=== PATIENT | female | born 1960 | race Caucasian/White ===

== ENCOUNTER 2016-05-22 17:04 | Inpatient (IN) ==
[2016-05-22] MEDS ORDERED: predniSONE 20 MG TABLET PO ONE (17:50)
[2016-05-22] MEDS ORDERED: Acyclovir 200 MG CAPSULE PO ONE (17:52)
[2016-05-22 18:12] LABS: Basophils # 0.2 K/mcL (0.0-0.2); Basophils % 0.9 %; Eosinophils # 0.4 K/mcL (0.0-0.6); Eosinophils % 1.7 %; Hematocrit 41.3 % (35.3-44.9); Hemoglobin 13.1 g/dL (11.5-15.4); Immature Granulocytes % 0.5 % (0-4); Immature Platelets 7.5 % (1.1-6.1); Lymphocytes # 6.3 K/mcL (0.6-4.6); Lymphocytes % 30.7 %; Mean Corpuscular HGB Conc 31.7 g/dL (31.6-35.5); Mean Platelet Volume 10.5 fL (9.4-12.4); Monocytes # 1.9 K/mcL (0.0-1.3); Monocytes % 9.3 %; Neutrophils # 11.6 K/mcL (1.6-8.9); Platelet Count 425 K/mcL (140-400); Red Blood Count 4.86 M/mcL (3.82-4.97); Red Cell Distribution Width 16.5 % (11.5-14.5); Segmented Neutrophils % 56.9 %
[2016-05-22 18:23] LABS: Calcium 9.2 mg/dL (8.6-10.8); Potassium 3.4 mEq/L (3.5-4.5)
--- NOTE | 2016-05-22 18:52 | Emergency Department Note ---
Disposition Clinical Impression: Hoffman's palsy, Acute kidney injury Urinary tract infection Qualifiers: Urinary tract infection type: site unspecified Hematuria presence: without hematuria Qualified Code(s): N39.0 - Urinary tract infection, site not specified Disposition: Admitted As Inpatient Condition: Good Referrals: NO,PCP [Primary Care Provider] - Forms: ED Satisfaction Letter Time of Disposition: 22:03 General Adult HPI - General Chief complaint: ED Neuro Symptoms/Deficit Stated complaint: Facial droop, stroke-like symptoms Time Seen by Provider: 05/22/16 17:11 Source: patient Limitations: no limitations Nursing Notes Reviewed: Yes Vital Signs Reviewed: Yes - History of Present Illness HPI Narrative: Patient presents to emergency room with 2 days worth of left-sided facial droop and itching in her left eye. Patient said this one other time approximate 4 months ago. Denied any other symptoms or complaints. No fevers or chills no nausea vomiting diarrhea denied headache vision changes chest pain or shortness of breath. Onset (ago): day(s) Location: face Radiation: non-radiation Pain Severity: mild Pain Scale: 4 Consistency: constant Improves with: nothing Worsens with: nothing Associated symptoms: Reports: denies other symptoms Treatments Prior to Arrival: none - Related Data Home Medications Medication Instructions Recorded Confirmed Docusate [Colace] 100 mg PO DAILY 05/22/16 05/22/16 Ibuprofen 200 - 400 mg PO Q4H PRN 05/22/16 05/22/16 Methadone Oral Concentrate 05/22/16 05/22/16 [Methadone] Allergies Allergy/AdvReac Type Severity Reaction Status Date / Time Penicillins Allergy See Verified 05/22/16 16:01 Comments All systems ED: reviewed and negative except as stated. Constitutional: Denies: fever, chills Cardiovascular: Denies: chest pain, palpitations Respiratory: Denies: dyspnea, wheezes, hemoptysis Genitourinary: Denies: dysuria, frequency Musculoskeletal: Denies: back pain, neck pain Integumentary: Denies: rash, lesions Allergic/Immunologic: Reports: itchy eyes Past Medical History - Past Medical History Attestation: Yes The following information was validated with the patient. Source: patient Medical history: Reports: other Surgical history: Reports: non-contributory Psychiatric history: Reports: no psych history - Social History Smoking Status: Never smoker Smokeless Tobacco Status: No Alcohol use: Reports: none Drug use: Reports: none Physical Exam - General Limitations: no limitations General appearance: alert - Head Head exam: atraumatic, normocephalic, normal inspection - Eye Eye exam: Present: normal appearance, PERRL, EOMI, conjunctival injection, other (Left-sided facial droop involving the forehead) - ENT ENT exam: normal exam, normal oropharynx, mucous membranes moist, TM's normal bilaterally - Neck Neck exam: Present: normal inspection, full ROM, trachea midline - Extremities Exam Extremities exam: Present: normal inspection, full ROM, normal capillary refill. Absent: tenderness - Back Exam Back exam: Present: normal inspection, full ROM. Absent: tenderness, CVA tenderness (R), CVA tenderness (L) - Neurological Exam Neurological exam: Present: alert, oriented X3, normal gait - Skin Skin exam: Present: warm, dry, intact, normal color Course Course Narrative: Patient seen and examined the time arrival. See history of present illness patient presents with left-sided facial weakness started 2 days ago. S she has had this in the past apparently 4 months ago a similar presentation. It resolved on its own spontaneously. Patient denies fevers chills nausea vomiting diarrheachest pain shortness of breath headache or vision change. Make a plan in presentation here she noticed that the facial droop on the left side is getting worse. Patient has no history of stroke. She does have high blood pressure but otherwise no other issues. Patient stable. Physical exam shows what appears to be full left-sided facial palsy including the forehead. inCorporate all 3 branches of the facial nerve. No vision changes at this time. Patient denies any other symptoms complaints. Lungs are clear heart is regular abdomen is soft. Patient does not go to a doctor and has not been seen in over 15 years. Stable resting comfortably in the bed screening laboratory workup including CBC and chemistry ordered along with a CT of the head. 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 First dose of acyclovir and prednisone given at this time. No history of herpes or shingles according to the patient. Most likely secondary to a viral illness or exacerbation of a chronic related issue. Patient stable with no other acute neurologic findings. NIH stroke scale is 1 based on presentation but otherwise negative. No ataxia no pronator drift cerebellar function is intact. Disposition pending treatment course. - Reevaluation(s) Reevaluation #1: Patient found to have lab abnormalities including a significantly elevated white blood cell count neutrophilia. She also has a creatinine of 2.7. Patient will have fluids provided to her and evaluation chest x-ray and urine. This is unknown etiology at this time. Patient denies any other symptoms. When I discussed the findings with her and she describes having some pain with eating and not wanting to eat very much over the last several months. Otherwise no other acute issues. Time: 20:14 Reevaluation #2: Patient found to have negative CT evaluation of this time no acute pathology. Urine is grossly infected. No signs of renal calculi or stone patient will be started on antibiotic regimen for the urinary tract infection. She was given acyclovir and prednisone for the Hoffman's palsy. CT imaging of the head was negative. Patient and I discussed in great detail my concern for her acute signs of kidney insufficiency as well as her urinary tract infection. She is comfortable this time to be admitted to the hospital for further evaluation and management. Otherwise patient has no other acute issues at this point. Fluid hydration and antibiotics ordered at this time. Hospitalist I discussed and reviewed the patient's presentation symptoms in great detail. He understands that the patient presented for Hoffman's palsy but was found to have other infectious etiology secondary to an elevated white blood cell count. There are no other recommendations at this time. Patient be admitted for acute kidney injury along with urinary tract infection Time: 22:02 Vital Signs Temperature 98.0 F 05/22/16 17:50 Pulse Rate 110 05/22/16 17:50 Respiratory Rate 14 05/22/16 17:50 Blood Pressure 100/75 05/22/16 17:50 O2 Sat by Pulse Oximetry 93 05/22/16 17:50 Temperature 98.0 F 05/22/16 17:50 Pulse Rate 110 05/22/16 17:50 Respiratory Rate 14 05/22/16 17:50 Blood Pressure 100/75 05/22/16 17:50 O2 Sat by Pulse Oximetry 93 05/22/16 17:50 Oxygen Delivery Oxygen Delivery Room Air Medical Decision Making - MDM Narrative Medical decision making narrative: Hoffman's palsy, elevated creatinine, leukocytosis, urinary tract infection - Medical Records Medical records reviewed: Yes I reviewed the patient's medical records. - Lab Data Lab results reviewed: Yes I reviewed the patient's lab results. Result diagrams: 05/22/16 18:04 05/22/16 18:04 Lab Results 05/22/16 05/22/16 05/22/16 Range/Units 17:09 18:04 18:04 WBC 20.4 H (4.3-11.1) K/mcL RBC 4.86 (3.82-4.97) M/mcL Hgb 13.1 (11.5-15.4) g/dL Hct 41.3 (35.3-44.9) % MCV 85.0 (83.0-100.0) fL MCH 27.0 L (28.0-33.3) pg MCHC 31.7 (31.6-35.5) g/dL RDW 16.5 H (11.5-14.5) % Plt Count 425 H (140-400) K/mcL MPV 10.5 (9.4-12.4) fL Immature Gran % 0.5 (0-4) % Seg Neutrophils % 56.9 % Lymphocytes % 30.7 % Monocytes % 9.3 % Eosinophils % 1.7 % Basophils % 0.9 % Neutrophils # 11.6 H (1.6-8.9) K/mcL Lymphocytes # 6.3 H (0.6-4.6) K/mcL Monocytes # 1.9 H (0.0-1.3) K/mcL Eosinophils # 0.4 (0.0-0.6) K/mcL Basophils # 0.2 (0.0-0.2) K/mcL Immature Plt Fraction 7.5 H (1.1-6.1) % Sodium 137 (136-145) mEq/L Potassium 3.4 L (3.5-4.5) mEq/L Chloride 101 (98-109) mEq/L Carbon Dioxide 19 (19-29) mEq/L BUN 17 (7-20) mg/dL Creatinine 2.70 H (0.57-1.11) mg/dL Est GFR ( Amer) 22 L (> 60) Est GFR (Non-Af Amer) 18 L (> 60) BUN/Creatinine Ratio 6 (6-26) Glucose 129 H (70-99) mg/dL POC Glucose 128 H (58-89) Calculated Osmolality 287 (280-300) Calcium 9.2 (8.6-10.8) mg/dL Urine Color (Yellow) Urine Clarity (Clear) Urine pH (5.0-8.0) pH Units Ur Specific [place] (1.010-1.025) Urine Protein (Neg-Trace) mg/dL Urine Glucose (UA) (Normal) mg/dL Urine Ketones (Negative) mg/dL Urine Blood (Negative) Urine Nitrite (Negative) Urine Bilirubin (Negative) Urine Urobilinogen (Normal) mg/dL Ur Leukocyte Esterase (Negative) Urine Microscopic RBC (0-3) per hpf Urine Microscopic WBC (0-3) per hpf Ur Squamous Epith Cells (None-Few) per lpf Ur Renal Epithelial Cell (None-Few) per hpf Calcium Oxalate Crystal Urine Bacteria (None-Few) per hpf Hyaline Casts (None-Few) per lpf Urine Mucus (Few) Urine Yeast (None Seen) per hpf Ur Culture Indicated? (NO) 05/22/16 Range/Units 20:25 WBC (4.3-11.1) K/mcL RBC (3.82-4.97) M/mcL Hgb (11.5-15.4) g/dL Hct (35.3-44.9) % MCV (83.0-100.0) fL MCH (28.0-33.3) pg MCHC (31.6-35.5) g/dL RDW (11.5-14.5) % Plt Count (140-400) K/mcL MPV (9.4-12.4) fL Immature Gran % (0-4) % Seg Neutrophils % % Lymphocytes % % Monocytes % % Eosinophils % % Basophils % % Neutrophils # (1.6-8.9) K/mcL Lymphocytes # (0.6-4.6) K/mcL Monocytes # (0.0-1.3) K/mcL Eosinophils # (0.0-0.6) K/mcL Basophils # (0.0-0.2) K/mcL Immature Plt Fraction (1.1-6.1) % Sodium (136-145) mEq/L Potassium (3.5-4.5) mEq/L Chloride (98-109) mEq/L Carbon Dioxide (19-29) mEq/L BUN (7-20) mg/dL Creatinine (0.57-1.11) mg/dL Est GFR ( Amer) (> 60) Est GFR (Non-Af Amer) (> 60) BUN/Creatinine Ratio (6-26) Glucose (70-99) mg/dL POC Glucose (58-89) Calculated Osmolality (280-300) Calcium (8.6-10.8) mg/dL Urine Color Dark Yellow (Yellow) Urine Clarity Turbid A (Clear) Urine pH 5.5 (5.0-8.0) pH Units Ur Specific [place] 1.025 (1.010-1.025) Urine Protein 100 H (Neg-Trace) mg/dL Urine Glucose (UA) Normal (Normal) mg/dL Urine Ketones Negative (Negative) mg/dL Urine Blood Moderate H (Negative) Urine Nitrite Negative (Negative) Urine Bilirubin Small H (Negative) Urine Urobilinogen Normal (Normal) mg/dL Ur Leukocyte Esterase Large H (Negative) Urine Microscopic RBC 15-30 H (0-3) per hpf Urine Microscopic WBC TNTC H (0-3) per hpf Ur Squamous Epith Cells Many H (None-Few) per lpf Ur Renal Epithelial Cell Moderate H (None-Few) per hpf Calcium Oxalate Crystal Present Urine Bacteria Moderate H (None-Few) per hpf Hyaline Casts None Seen (None-Few) per lpf Urine Mucus Moderate H (Few) Urine Yeast Moderate H (None Seen) per hpf Ur Culture Indicated? YES A (NO) - Radiology Data Radiology results reviewed: Yes I reviewed the patient's radiology results. CT that is negative for acute pathology. CT of the abdomen is negative for acute infectious etiology on presentation. - EKG Data EKG #1 EKG attestation: Yes I reviewed and interpreted this EKG. EKG shows normal: sinus rhythm, axis, intervals, QRS complexes, ST-T waves Rate: tachycardia Rhythm: NSR [place]/QRS: normal When compared to previous EKG there are: no significant changes (12/20/11) Interpretation: no acute changes, unchanged when compared to prior tracing (date ) Attestation Statement - Attestation Attestation: I personally interviewed and examined this patient and my medical decision- making was reviewed with the ED Resident Physician, Dr. Kelly. I agree with the documented findings, disposition and treatment plan as described except to the extent set forth below. Patient is 55-year-old white female who presents to the emergency room today out of concerns for left-sided facial drooping which began over 24 hours ago. Patient states that when she woke 2 days ago she was having a lot of dryness to her left eye and then noticed Saturday morning that she was having left-sided facial drooping. Patient states "I was just hoping it would go away and get better". Patient denies any headaches throughout the last 3 days, no fevers or chills, no URI symptoms sinus pain or pressure, no visual changes, no extremity weakness or numbness, no vertigo or difficulty ambulating. Patient's family member encouraged her to come in for evaluation today for this left-sided facial drooping. Physical exam symptoms appear consistent with a Hoffman's palsy, due to forehead involvement. Patient also has a dry appearing eye with some scleral irritation , and some left ear symptoms. Otherwise remainder of exam is unremarkable. Symptoms are not consistent with acute CVA, and patient has no other focal neuro deficits. Patient had a lab evaluation including CT of the head. CT imaging was unremarkable but patient's labs show a significant leukocytosis with left shift , unclear etiology. Patient also with the urine concerning for UTI. Patient with no prior renal history, with what appears to be acute renal insufficiency with an elevated BUN/creatinine significant A from baseline and no old labs for comparison. Patient was hydrated and we did add the urinalysis, chest x-ray and a CT abdomen and pelvis due to the leukocytosis. Other than the urine chest x-ray and CT scanning was unremarkable. At this time we will begin the patient for evaluation of her acute renal insufficiency, UTI with antibiotics initiated in the ER and the leukocytosis.
[2016-05-22] MEDS ORDERED: 0.9 % Sodium Chloride 1,000 ML IVC ONE (20:15)
[2016-05-22 20:49] LABS: Bilirubin,Urine Small (Negative); Blood,Urine Moderate (Negative); Clarity,Urine Turbid (Clear); Color,Urine Dark Yellow (Yellow); Glucose,Urine (UA) Normal (Normal); Ketones,Urine Negative (Negative); Leukocyte Esterase,Urine Large (Negative); Nitrite,Urine Negative (Negative); PH,Urine 5.5 pH Units (5.0-8.0); Protein,Urine 100 mg/dL (Neg-Trace); Specific Gravity,Urine 1.025 (1.010-1.025); Urobilinogen,Urine Normal (Normal)
[2016-05-22 20:51] LABS: RBC,Urine 15-30 per hpf (0-3); Squamous Epithelial Cell,Urine Many per lpf (None-Few); WBC,Urine TNTC per hpf (0-3)
[2016-05-22 20:52] LABS: Bacteria,Urine Moderate per hpf (None-Few)
[2016-05-22 20:53] LABS: Hyaline Casts,Urine None Seen per lpf (None-Few); Yeast,Urine Moderate per hpf (None Seen)
[2016-05-22 20:54] LABS: Mucus,Urine Moderate (Few); Renal Epithelial Cells,Urine Moderate per hpf (None-Few)
[2016-05-22 20:57] LABS: Calcium Oxalate Crystals,Urine Present
[2016-05-23] MEDS ORDERED: Naloxone 0.4 MG/ML INJ IVP PRN (00:33)
[2016-05-23] MEDS ORDERED: Potassium Chloride Elixir 20 MEQ/15 ML UDC PO ONE (00:36)
--- NOTE | 2016-05-23 00:36 | Internal Med History&Physical ---
Date of Encounter: 05/23/16 Time of Encounter: 00:10 Assessment and Plan (1) Severe sepsis Current visit: Yes Status: Acute patient comes in with symptoms of UTI and UA confirms that, she also has leucocytosis and tachycardia meeting SIRS criteria with end organ damage-JEREL we will admit for further management with IV Abx, IVF, symptoms management and follow microbiology report (2) Hypokalemia Current visit: Yes Status: Acute from poor oral intake, we will replace and follow BMP (3) Acute kidney injury Current visit: Yes Status: Acute her baseline creatinine is unknown since she has not been to a pysician in years but she comes in with dehydration in the setting of poor oral intake and sepsis with an elevated creatinine of 2.7, this leads us to believe that she has JEREL, we will hydrate, avoid nephrotoxins, renally dose all medications and follow BMP (4) Hoffman's palsy Current visit: Yes Status: Acute this began about 2 days prior, etiology most likely viral, we will manage symptoms (5) Urinary tract infection Current visit: Yes Status: Acute she has symptoms of UTI with a confirmatory UA, we will follow with culture and sensitivities Qualifiers: Urinary tract infection type: acute cystitis Hematuria presence: without hematuria Qualified Code(s): N30.00 - Acute cystitis without hematuria (6) Opioid dependence Current visit: Yes Status: Chronic patient on methadone 115mg PO QDay, she gets it from [place], her will bring the bottle or prescription in AM Qualifiers: Substance use status: uncomplicated Qualified Code(s): F11.20 - Opioid dependence, uncomplicated Internal Medicine - H&P: HPI Chief complaint: referred from [facility] urgent care Admitted From: Emergency Dept Plans for Post Hospital Care: Home History of present illness: Ms. Carranza is a 55 year old female with kidney stones that has not required any intervention in the past, no other medical history since she has not been to a physician in "years". She comes in today as a referral from [facility] urgent care. She was in her usual state of health until Saturday when she felt pain on the left side of her face with eye pain. She paid it no mind but on Saturday she noticed that her left face was funny looking and she could not close her eyes on that side, she also noted that her left eye had a gritty sensation. She also started experiencing pain on urination, and inability to hold her urine when she feels the urge to urinate and sometimes wet herself. All these symptoms started over the weekend. At [facility] she reports that no labs were done, she was referred here for further evaluation when they took a look at her face. She denies prior episode of facial weakness, no fever, chills, nausea or vomiting but she admits to poor appetite and poor oral intake, her urine color has also been dark since the onset of her symptoms. Past Med Surg Social Fam HX - Past Medical History Source: patient Medical history: kidney stones, other (chronic back pain on methadone( 7v years now, gets it from [place]) for prescription drug abuse in the past, has had the Flu in the past) Psychiatric history: no psych history - Past Surgical History Surgical History: cholecystectomy, hysterectomy - Social History Smoking Status: Never smoker Smokeless Tobacco Status: No Alcohol use: none Drug use: none Current living situation: Home - Independent Additional social history: with an adult son - Additional Family History Additional family history: Father-, had coal worker's lung, also had heart disease and HTN. Mother: , she had HTN, DM and strokes. Brother had brain cancer Internal Medicine - H&P: Meds Docusate [Colace] 100 mg PO DAILY 05/22/16 [History] Ibuprofen 200 - 400 mg PO Q4H PRN 05/22/16 [History] Methadone Oral Concentrate [Methadone] 05/22/16 [History] Allergies Penicillins Allergy (Verified 05/22/16 16:01) See Comments Swelling, hives, wheezing All Systems PM: A 10-system review of systems was performed and is negative for pertinent findings except as documented above in the HPI. - Constitutional Constitutional: anorexia, fatigue, malaise, no chills, no fever(s), no night sweats - EENT Eyes: blurry vision, dry eye, irritation, other visual disturbances, no change in vision, no discharge, no pain, no photophobia Nose, mouth and throat: dry mouth, facial pain, no dysphagia, no nasal discharge , no neck pain, no sore throat - Cardiovascular Cardiovascular ROS IM: no chest pain, no diaphoresis, no dyspnea, no lightheadedness, no palpitations, no syncope - Respiratory Respiratory: no cough, no dyspnea, no wheezing, no excessive phlegm production - Gastrointestinal Gastrointestinal: no abdominal pain, no diarrhea, no hematemesis, no hematochezia, no melena, no nausea, no vomiting - Genitourinary Genitourinary: dysuria, urinary frequency, urinary incontinence, urinary urgency , no change in urinary stream, no flank pain, no hematuria - Musculoskeletal Musculoskeletal ROS IM: no numbness, no tingling - Integumentary Integumentary IM: no rash, no unusual bruising - Neurological Neurological ROS: no confusion, no convulsions, no focal weakness, no numbness, no tingling, no tremor(s) - Psychiatric Psychiatric: no auditory hallucinations, no hallucinations - Endocrine Endocrine IM: fatigue, no polydipsia, no polyuria - Hematologic/Lymphatic Hematologic/Lymphatic: no easy bruising - Allergic/Immunologic Allergic/Immunologic: no tongue swelling, no throat swelling - Constitutional Vitals: Temp Pulse Resp BP Pulse Ox 97.9 F 114 18 112/63 93 05/22/16 23:32 05/22/16 23:32 05/22/16 23:32 05/22/16 23:32 05/22/16 23:32 - General General appearance: Adult female, lying in bed with no sign of distress, left facial weakness noted-both upper and lower, alert - Head Head exam: atraumatic, normocephalic, normal inspection - Eye Eye exam: Present: normal appearance, PERRL, EOMI, conjunctival injection, weakness of the muscles of the left eye - ENT ENT exam: normal exam, normal oropharynx, mucous membranes moist, TM's normal bilaterally - Neck Neck exam: Present: normal inspection, full ROM, trachea midline - Respiratory clear lung sounds bilaterally, no respiratory distress, noted, -Cardiovascular systolic murmur heard, normal rate and rhythm, no pedal edema, -Abdomen soft, non tender, no masses palpable, normal bowel sounds, - Extremities Exam Extremities exam: Present: normal inspection, full ROM, normal capillary refill. Absent: tenderness - Neurological Exam Neurological exam: Present: alert, oriented X3, CN 2-12 intact except CN 7 on the left, non focal motor and sensory exam - Skin Skin exam: Present: warm, dry, intact, normal color Internal Med - H&P Results - Labs CBC & Chem 7: 05/22/16 18:04 04/11/17 18:04 - EKG Data EKG shows normal: sinus rhythm Rate: tachycardia - EKG Data Prior EKG available for review: yes When compared to previous EKG: there is no significant change (except tachycardia) - Diagnostic Studies Chest x-ray Status: image reviewed by me CT scan - head Status: image reviewed by me CT scan - abdomen Status: image reviewed by me
[2016-05-23] MEDS: 0.9 % Sodium Chloride 1,000 ML IVC SCH ×2 (00:54→10:55)
[2016-05-23] MEDS ORDERED: 0.9 % Sodium Chloride 1,000 ML IVC ONE (02:25)
[2016-05-23] MEDS: Artificial Tears SOLN 15 ML BOTTLE LEFT EYE SCH ×5 (05:12→20:07)
[2016-05-23] MEDS: *HR* Heparin 5,000 UNIT/ML VIAL SQ SCH ×3 (05:48→20:08)
[2016-05-23 06:14] LABS: Hematocrit 36.7 % (35.3-44.9); Mean Corpuscular HGB Conc 31.1 g/dL (31.6-35.5); Mean Corpuscular Hemoglobin 27.7 pg (28.0-33.3); Mean Corpuscular Volume 89.1 fL (83.0-100.0); Mean Platelet Volume 11.3 fL (9.4-12.4); Platelet Count 322 K/mcL (140-400); Red Blood Count 4.12 M/mcL (3.82-4.97); Red Cell Distribution Width 16.8 % (11.5-14.5)
[2016-05-23 06:36] LABS: Calcium 8.4 mg/dL (8.6-10.8); Potassium 4.3 mEq/L (3.5-4.5)
[2016-05-23 06:37] LABS: Hemoglobin 11.4 g/dL (11.5-15.4)
[2016-05-23] MEDS ORDERED: *HR* Dextrose 50 % in Water (Syg) 50 ML SYRINGE IVP PRN (08:17)
[2016-05-23] MEDS ORDERED: Dextrose Gel 15 GM PO PRN ×2 (08:17)
[2016-05-23] MEDS ORDERED: D5% in Water 1,000 ML IVC PRN (08:17)
[2016-05-23] MEDS: METHADONE PO SCH (10:13)
[2016-05-23] MEDS: Insulin LISPRO 300 UNITS/3 ML VIAL SQ SCH ×3 (13:02→22:39)
--- NOTE | 2016-05-23 19:47 | Electrocardiograph Report ---
[place] [id number] Test Date: 2016-05-22 Pat Name: Shanel Carranza Department: 103 Room: 3A37 Gender: F Bone Tender: MSC : 1960 Requested By: Joshua Kelly Order Number: [id number] Reading MD: Jessica Varela Measurements Intervals [place] Rate: 115 P: 48 WV: 152 QRS: 53 QRSD: 89 T: 43 QT: 362 QTc: 430 Interpretive Statements SINUS TACHYCARDIA NONSPECIFIC ST \T\ T-WAVE ABNORMALITY ABNORMAL RHYTHM ECG Electronically Signed On 05-23-2016 19:45:27 EDT by Jessica Varela
[2016-05-23] MEDS: Acetaminophen/Aspirin/Caffeine TABLET PO PRN (22:37)
[2016-05-24] MEDS: Artificial Tears SOLN 15 ML BOTTLE LEFT EYE SCH ×7 (01:04→20:51)
[2016-05-24] MEDS: *HR* Heparin 5,000 UNIT/ML VIAL SQ SCH ×3 (06:06→20:52)
[2016-05-24 06:26] LABS: Basophils # 0.1 K/mcL (0.0-0.2); Eosinophils # 0.3 K/mcL (0.0-0.6); Eosinophils % 2.6 %; Hematocrit 35.6 % (35.3-44.9); Hemoglobin 10.8 g/dL (11.5-15.4); Immature Granulocytes % 0.2 % (0-4); Lymphocytes # 5.9 K/mcL (0.6-4.6); Lymphocytes % 48.9 %; Mean Corpuscular HGB Conc 30.3 g/dL (31.6-35.5); Mean Corpuscular Hemoglobin 26.8 pg (28.0-33.3); Mean Corpuscular Volume 88.3 fL (83.0-100.0); Mean Platelet Volume 10.7 fL (9.4-12.4); Monocytes # 0.8 K/mcL (0.0-1.3); Monocytes % 6.5 %; Neutrophils # 4.9 K/mcL (1.6-8.9); Platelet Count 317 K/mcL (140-400); Red Blood Count 4.03 M/mcL (3.82-4.97); Red Cell Distribution Width 17.2 % (11.5-14.5); Segmented Neutrophils % 40.8 %
[2016-05-24 06:33] LABS: Ionized Calcium 1.17 mmol/L (1.15-1.35)
[2016-05-24 06:37] LABS: Albumin 3.2 g/dL (3.5-5.0); Albumin/Globulin Ratio 0.8 (1.1-2.2); Bilirubin,Direct 0.2 mg/dL (0.0-0.5); Bilirubin,Total 0.2 mg/dL (0.2-1.2); Calcium 9.1 mg/dL (8.6-10.8); Magnesium 2.1 mg/dL (1.6-2.6); Phosphorous 2.8 mg/dL (2.3-4.7); Potassium 3.8 mEq/L (3.5-4.5); Total Protein 7.2 g/dL (6.0-8.3)
[2016-05-24] MEDS: Insulin LISPRO 300 UNITS/3 ML VIAL SQ SCH ×4 (09:53→21:40)
[2016-05-24] MEDS: METHADONE PO SCH (09:54)
[2016-05-24 11:33] LABS: Hemoglobin A1C 7.8 %
[2016-05-24] MEDS ORDERED: Lacri-Lube 3.5 GM TUBE LEFT EYE PRN (16:46)
--- NOTE | 2016-05-24 19:38 | Internal Med Progress Note ---
Date of Encounter: 05/24/16 Time of Encounter: 10:45 - Assessment and plan (1) Severe sepsis Current Visit: Yes Status: Acute Assessment and plan: Secondary to urinary tract infection. Urine culture growing gram-negative radha. 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 Close monitoring. Continue prednisone and start oral by the psychiatrist. Close monitoring of neurological findings. (4) Acute kidney injury Current Visit: Yes Status: Acute Assessment and plan: Prerenal from dehydration due to infection. Improved. Continue IV fluids. Close monitoring. Avoid nephrotoxic agents as possible. (5) Opioid dependence Current Visit: Yes Status: Chronic Assessment and plan: Patient takes methadone at home. Qualifiers: Substance use status: uncomplicated Qualified Code(s): F11.20 - Opioid dependence, uncomplicated - Subjective Interval history: Patient feels better. Her urinary symptoms are improving. - Constitutional Vitals: Temp Pulse Resp BP Pulse Ox 98.0 F 89 18 111/68 92 05/24/16 18:47 05/24/16 18:47 05/24/16 18:47 05/24/16 18:47 05/24/16 18:47 General appearance: Present: cooperative, A&O X 3, pleasant, no acute distress, answers questions appropriately - Neck Neck exam general surgery: Present: supple, trachea midline. Absent: lymphadenopathy - Respiratory Respiratory exam: Present: CTAB - Cardiovascular Cardiovascular exam: Present: RRR - GI/Abdominal GI/Abdominal exam: Present: normal bowel sounds, soft. Absent: distended, tenderness - Extremities Exam Extremities exam: Absent: pedal edema - Back Exam Back exam: Absent: CVA tenderness (L), CVA tenderness (R) - Neurological Exam Neurological exam: Present: alert, oriented X3, no focal deficits, strengths equal and symetr throughout. Absent: facial droop, speech deficit Additional comments: Facial droop. Inability to close her left eye. - Skin Skin exam: Absent: rash Internal Medicine: Result - Labs CBC & Chem 7: 05/24/16 05:57 05/24/16 05:57 Labs: Short CBC 05/24/16 Range/Units 05:57 WBC 12.0 H (4.3-11.1) K/mcL Hgb 10.8 L (11.5-15.4) g/dL Hct 35.6 (35.3-44.9) % Plt Count 317 (140-400) K/mcL Neutrophils # 4.9 (1.6-8.9) K/mcL BMP 05/24/16 05:57 Sodium 138 Potassium 3.8 Chloride 107 Carbon Dioxide 19 BUN 16 Creatinine 1.21 H D Glucose 148 H Calcium 9.1 Liver Function 05/24/16 Range/Units 05:57 Total Bilirubin 0.2 (0.2-1.2) mg/dL Direct Bilirubin 0.2 (0.0-0.5) mg/dL AST 51 H (5-34) Units/L ALT 33 (0-55) Units/L Alkaline Phosphatase 484 H (38-126) Units/L Albumin 3.2 L (3.5-5.0) g/dL Consult Discharge Plan - Plan Referrals: Yanni Villarreal CNP [Advanced Practice Nurse] - 05/29/16 2:00 pm (Please arrive 30 min. early to fill our paperwork. Please bring your photo ID, Ins. Card and any medications you are on. If you need to cancel the appt., please give a 24 hour notice. Thank you)
[2016-05-24] MEDS: predniSONE 20 MG TABLET PO SCH (20:51)
[2016-05-24] MEDS: valACYclovir 500 MG TABLET PO SCH (20:52)
[2016-05-24] MEDS: Acetaminophen/Aspirin/Caffeine TABLET PO PRN (20:52)
[2016-05-25] MEDS: Artificial Tears SOLN 15 ML BOTTLE LEFT EYE SCH ×3 (03:27→08:13)
[2016-05-25] MEDS: *HR* Heparin 5,000 UNIT/ML VIAL SQ SCH (05:48)
[2016-05-25] MEDS: predniSONE 20 MG TABLET PO SCH (08:10)
[2016-05-25] MEDS: Insulin LISPRO 300 UNITS/3 ML VIAL SQ SCH (08:10)
[2016-05-25] MEDS: valACYclovir 500 MG TABLET PO SCH (08:10)
[2016-05-25] MEDS: METHADONE PO SCH (08:13)
[2016-05-25 10:10] LABS: Basophils % 0.2 %; Hematocrit 35.2 % (35.3-44.9); Hemoglobin 10.9 g/dL (11.5-15.4); Immature Granulocytes % 0.5 % (0-4); Lymphocytes # 1.7 K/mcL (0.6-4.6); Lymphocytes % 18.9 %; Mean Corpuscular Hemoglobin 27.2 pg (28.0-33.3); Mean Corpuscular Volume 87.8 fL (83.0-100.0); Mean Platelet Volume 10.3 fL (9.4-12.4); Monocytes # 0.5 K/mcL (0.0-1.3); Monocytes % 5.4 %; Neutrophils # 6.9 K/mcL (1.6-8.9); Platelet Count 333 K/mcL (140-400); Red Blood Count 4.01 M/mcL (3.82-4.97); Red Cell Distribution Width 16.5 % (11.5-14.5)
[2016-05-25 10:21] LABS: BUN/Creatinine Ratio 11 (6-26); Blood Urea Nitrogen 10 mg/dL (7-20); Calcium 9.2 mg/dL (8.6-10.8); Carbon Dioxide 20 mEq/L (19-29); Chloride 106 mEq/L (98-109); Glucose 279 mg/dL (70-99); Osmolality,Calculated 289 (280-300); Potassium 4.7 mEq/L (3.5-4.5); Sodium 135 mEq/L (136-145); eGFR For African Americans > 60 (> 60); eGFR For Non-African Americans > 60 (> 60)
[2016-05-25 10:28] LABS: Platelet Estimate Normal (Normal)
[2016-05-25] MEDS: Acetaminophen/Aspirin/Caffeine TABLET PO PRN (11:02)
--- NOTE | 2016-05-25 11:25 | Discharge Summary ---
Date of Encounter: 05/25/16 Time of Encounter: 09:30 - Discharge Diagnosis (1) Severe sepsis Priority: Primary Status: Acute (2) Urinary tract infection Priority: Primary Status: Acute Qualifiers: Urinary tract infection type: acute cystitis Hematuria presence: without hematuria Qualified Code(s): N30.00 - Acute cystitis without hematuria (3) Hoffman's palsy Priority: Primary Status: Acute (4) Acute kidney injury Priority: Primary Status: Acute (5) Abnormal CT of the abdomen Priority: Primary Status: Acute (6) Opioid dependence Priority: Secondary Status: Chronic Qualifiers: Substance use status: uncomplicated Qualified Code(s): F11.20 - Opioid dependence, uncomplicated - Discharge Medications Prescriptions: Acetaminophen/Aspirin/Caffeine [Excedrin EX] 1 each PO Q6HR PRN #30 tablet PRN Reason: Headache Cephalexin [Keflex] 500 mg PO BID #10 capsule Eye Patch 1 each LEFT EYE HS #2 each GlipiZIDE [Glucotrol Xl] 2.5 mg PO DAILY #30 tab.er.24 Metformin [Glucophage] 500 mg PO BIDWM #60 tablet PredniSONE 60 mg PO DAILY #15 tablet Valacyclovir [Valtrex] 1,000 mg PO TID #18 tablet Home Medications: Docusate [Colace] 100 mg PO DAILY 05/22/16 [History] Methadone Oral Concentrate [Methadone] 05/22/16 [History] Acetaminophen/Aspirin/Caffeine [Excedrin EX] 1 each PO Q6HR PRN #30 tablet 05/25 [Rx] Artificial Tears SOLN [Akwa Tears] 1 drop LEFT EYE Q4HR #0 bottle 05/25/16 [Rx] Cephalexin [Keflex] 500 mg PO BID #10 capsule 05/25/16 [Rx] Eye Patch 1 each LEFT EYE HS #2 each 05/25/16 [Rx] GlipiZIDE [Glucotrol Xl] 2.5 mg PO DAILY #30 tab.er.24 05/25/16 [Rx] Lacri-Lube [Lacri-lube] 1 appl LEFT EYE QID PRN #0 tube 05/25/16 [Rx] Metformin [Glucophage] 500 mg PO BIDWM #60 tablet 05/25/16 [Rx] Patient Taking Own Medication 1 each PO DAILY each 05/25/16 [Rx] PredniSONE 60 mg PO DAILY #15 tablet 05/25/16 [Rx] Valacyclovir [Valtrex] 1,000 mg PO TID #18 tablet 05/25/16 [Rx] Allergies/Adverse Reactions: Allergies Penicillins Allergy (Verified 05/22/16 16:01) See Comments Swelling, hives, wheezing Date of admission: 05/23/16 04:48 Primary care physician: PCP NO - Patient Status Disposition: Home, Self-Care Condition: Good Functional capacity at discharge: independent ambulation Overall status at discharge: patient is progressing back to baseline - Discharge Instructions Instructions: Urinary Tract Infection in Women (DC), Hoffman Palsy (DC), How to Check Your Blood Sugar (DC), Diabetes Mellitus Type 1 in Adults (DC), Diabetes Mellitus Type 2 in Adults (DC) Follow Up With: Yanni Villarreal CNP [Advanced Practice Nurse] - 05/29/16 2:00 pm (Please arrive 30 min. early to fill our paperwork. Please bring your photo ID, Ins. Card and any medications you are on. If you need to cancel the appt., please give a 24 hour notice. Thank you) Additional Instructions: your blood sugars are high because of the steroids (the new medication prednisone for your Hoffman's palsy). follow a diabetic diet. please check your blood sugars at home before meals and at bedtime. make a log, and bring log to your doctor's appointment. cover your left eye at night with the eye patch. you can wear protective glasses or goggles during the day. please drink plenty of fluids at least 2 liters every day - Diet and Activity Activity: resume usual activities as tolerated Diet: diabetic diet Interval History: Patient has no complaints except her left sided bells pulse. No abdominal pain. She is eating well. Hospital course: Ms. Carranza is a 55 year old female with past medical history of back pain on methadone who presented with a chief complaint of left-sided face and eye pain as well as dysuria for the past 3 days. Urinalysis was positive for infection. She was admitted with bleeding as of Hoffman's palsy, JEREL and sepsis secondary to urinary tract infection. CT of the head showed no acute process. Chest x- ray showed no acute process. 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 She was started on prednisone, valacyclovir, IV fluids and empiric antibiotics (IV ceftriaxone) with clinical improvement. Urine culture grew pansensitive Klebsiella pneumoniae. PLAN: Patient will complete one week of oral prednisone and valacyclovir. She was prescribed oral Keflex for a total course of 7 days of antibiotics. She will follow-up with her primary care physician next week for UTI, Hoffman's palsy and abnormal CT of the abdomen.. - Time Spent with Patient Total time spent providing and/or coordinating discharge services: - Constitutional Vitals: Temp Pulse Resp BP Pulse Ox 97.7 F 87 18 133/75 95 05/25/16 07:20 05/25/16 07:20 05/25/16 07:20 05/25/16 07:20 05/25/16 07:20 General appearance: Present: cooperative, A&O X 3, pleasant, no acute distress, answers questions appropriately - Neck Neck exam general surgery: Present: supple, trachea midline. Absent: lymphadenopathy - Respiratory Respiratory exam: Present: CTAB - Cardiovascular Cardiovascular exam: Present: RRR - GI/Abdominal GI/Abdominal exam: Present: normal bowel sounds, soft. Absent: distended, tenderness - Extremities Exam Extremities exam: Absent: pedal edema - Back Exam Back exam: Absent: CVA tenderness (L), CVA tenderness (R) - Neurological Exam Neurological exam: Present: alert, oriented X3, strengths equal and symetr throughout. Absent: speech deficit Additional comments: Left facial droop. Unable to close her left eye. - Skin Skin exam: Absent: rash
[2016-05-25 11:50] VITALS: BP 116/66
== END 2016-05-25 12:56 | disposition home or self-care (01) | DRG 872 ==
LOC: 3ANU 17:04 → EMEROO 17:04 → 3ANU 23:17
PROVIDERS: ADMIT Internal Medicine; ATTEND Internal Medicine